=== PATIENT | female | born 1980 | race Hispanic/Latino ===

== ENCOUNTER 2018-08-30 09:29 | Outpatient (CLI) | payer OTHER ==
--- NOTE | 2018-08-30 12:07 | ULT ---
OB ULTRASOUND: INDICATION: Evaluation for size and dates. FINDINGS: There is a single live intrauterine gestation which by ultrasound imaging corresponds to a 21-week 5- day gestation placing estimated date of delivery by ultrasound at 01/05/2019. Estimated weight is 476 gm. The imaged anatomy including the cranium, spine, 4-chamber, gastric bubble, k idneys, cord insertion site, and urinary bladder reveal no significant abnormalities. The fetus is i n a breech lie, as demonstrated. Placenta is located primarily in an anterior location. Cardiac act ivity is documented at 141 b.p.m. Biparietal diameter corresponds to 21 weeks 4 days. Head circumference 21 weeks 3 days. Abdominal circumference 22 weeks 2 days Femur length 22 weeks 1 day. NESTOR is measured at 14.5 cm. IMPRESSION: Single live intrauterine gestation as discussed above. POS: [facility]
== END 2018-08-30 09:30 | disposition home or self-care (01) ==
LOC: SCSULT 09:29
PROVIDERS: ATTEND Nurse Practitioner
DX: O09.92 Supervision of high risk pregnancy, unspecified, second trimester (principal); Z3A.21 21 weeks gestation of pregnancy
CPT/HCPCS: 76805

== ENCOUNTER 2019-01-03 05:07 | Inpatient (IN) | payer MEDICAID, SELFPAY ==
[2019-01-03] MEDS ORDERED: Ondansetron PF 4 MG/2 ML Vial IVP PRN ×3 (05:44→09:10)
[2019-01-03] MEDS ORDERED: Lactated Ringer's 1,000 ML IV SCH ×2 (05:44→09:10)
[2019-01-03] MEDS ORDERED: Bicitra 30 ML UDCUP PO SCH (05:45)
[2019-01-03 05:51] VITALS: BMI 37.8
[2019-01-03] MEDS ORDERED: CEFAZOLIN 2 GM/50 ML BAG IVPB SCH (06:00)
[2019-01-03 06:05] LABS: Hemoglobin 13.2 g/dL (12.0-16.0); Mean Corpuscular HGB CONC 33.5 g/dL (32.0-36.0); Mean Corpuscular Hemoglobin 28.6 pg (27.0-31.0); Mean Corpuscular Volume 85.4 fL (78.0-98.0); Mean Platelet Volume 8.9 fL (7.4-10.4); Platelet Count 221 thou/uL (130-400); RBC Distribution Width 12.8 % (11.5-14.5); Red Blood Cell (RBC) Count 4.62 mill/uL (4.20-5.40); White Blood Cell (WBC) Count 10.2 thou/uL (4.8-10.8)
[2019-01-03 06:40] LABS: HBSAg Index 0.22 S/CO (0-0.99); Hep B Surf Ag Non-Reactive S/CO (NonReactive); Syphilis Antibody Nonreactive (Nonreactive); Syphilis Antibody Index 0.09 S/CO (<1.00 Non-Reactive)
[2019-01-03] MEDS ORDERED: MORPHINE 5 MG/10 ML PF VIAL ONE (07:05)
[2019-01-03] MEDS ORDERED: Fentanyl 100 MCG/2 ML VIAL ONE (07:05)
[2019-01-03] MEDS ORDERED: Ondansetron PF 4 MG/2 ML Vial ONE ×2 (07:06→16:59)
[2019-01-03] MEDS ORDERED: ePHEDrine/0.9% NaCl/PF SYRINGE 50 mg/10 ml ONE (07:06)
[2019-01-03] MEDS ORDERED: Oxytocin 10 UNITS/ML VIAL ONE ×2 (07:06→08:38)
[2019-01-03] MEDS ORDERED: Ketorolac Tromethamine 30 MG/ML VIAL ONE ×2 (07:06→16:59)
[2019-01-03] MEDS ORDERED: Atropine Sulfate 0.4 mg/1 ml Vial ONE ×2 (07:37→16:59)
[2019-01-03] MEDS ORDERED: Methylergonovine 0.2 MG/ML VIAL ONE (07:46)
[2019-01-03] MEDS ORDERED: Promethazine HCl 25 MG SUPP PR PRN (07:47)
[2019-01-03] MEDS ORDERED: Promethazine HCl 25 MG/ML VIAL IM PRN (07:47)
[2019-01-03] MEDS ORDERED: Naloxone HCl 0.4 mg/ml Vial IVP PRN ×2 (07:47)
[2019-01-03] MEDS ORDERED: Ondansetron HCl/PF 4 MG/2 ML Vial IVP PRN (07:47)
[2019-01-03] MEDS ORDERED: HYDROmorphone 2 MG/ML VIAL SLOW IVP PRN (07:47)
[2019-01-03] MEDS ORDERED: diphenhydrAMINE 50 MG/ML VIAL IVP PRN (07:47)
[2019-01-03] MEDS ORDERED: Meperidine HCl/PF 25 MG/ML VIAL SLOW IVP PRN (07:47)
[2019-01-03] MEDS ORDERED: L&D-Morphine 4 MG/ML VIAL SLOW IVP PRN (07:47)
[2019-01-03] MEDS ORDERED: Naloxone HCl 0.4 mg/ml Vial IV PRN (07:47)
[2019-01-03] MEDS ORDERED: Eucerin (Mineral Oil/Petrolatum,White) 30 gm Jar TOP PRN (07:47)
[2019-01-03] MEDS ORDERED: Ketorolac Tromethamine 30 MG/ML VIAL IVP SCH (08:00)
[2019-01-03] MEDS ORDERED: Communication Order-Pharmacy FS SCH (08:00)
[2019-01-03] MEDS ORDERED: Bisacodyl 10 MG SUPP PR PRN (09:10)
[2019-01-03] MEDS ORDERED: NS / Oxytocin 40 units/1000ml 1,000 ML IV SCH (09:10)
[2019-01-03] MEDS ORDERED: diphenhydrAMINE 25 MG CAP PO PRN (09:10)
[2019-01-03] MEDS ORDERED: Lanolin Ointment 7 GM TUBE TOP PRN (09:10)
[2019-01-03] MEDS ORDERED: Prenatal Vitamin 1 TAB PO SCH (09:45)
[2019-01-03] MEDS ORDERED: Docusate Calcium (SURFAK) 240 MG CAP PO SCH (09:45)
[2019-01-03] MEDS ORDERED: Ferrous Sulfate 325 MG TAB PO SCH (09:45)
[2019-01-03] MEDS: Ketorolac Tromethamine 30 MG/ML VIAL IVP PRN (14:19)
[2019-01-03] MEDS: Ferrous Sulfate 325 MG TAB PO SCH (16:04)
[2019-01-03] MEDS ORDERED: ePHEDrine 50 MG/ML VIAL ONE (16:59)
[2019-01-03] MEDS ORDERED: HYDROcodone/Acetaminophen 5/325 mg Tablet PO PRN ×2 (20:00)
[2019-01-03] MEDS ORDERED: Meperidine HCl/PF 25 MG/ML VIAL IM PRN (20:00)
[2019-01-03] MEDS: Docusate Calcium (SURFAK) 240 MG CAP PO SCH (22:13)
[2019-01-03] MEDS: Simethicone Chewable 80 MG TAB PO PRN (22:13)
[2019-01-04] MEDS: Ketorolac Tromethamine 30 MG/ML VIAL IVP PRN (00:48)
[2019-01-04 08:54] LABS: Hemoglobin 9.8 g/dL (12.0-16.0); Mean Corpuscular HGB CONC 33.5 g/dL (32.0-36.0); Mean Corpuscular Hemoglobin 29.1 pg (27.0-31.0); Mean Corpuscular Volume 86.9 fL (78.0-98.0); Mean Platelet Volume 7.9 fL (7.4-10.4); Platelet Count 178 thou/uL (130-400); Red Blood Cell (RBC) Count 3.38 mill/uL (4.20-5.40); White Blood Cell (WBC) Count 10.2 thou/uL (4.8-10.8)
[2019-01-04] MEDS: Docusate Calcium (SURFAK) 240 MG CAP PO SCH ×2 (09:03→21:45)
[2019-01-04] MEDS: Prenatal Vitamin 1 TAB PO SCH (09:03)
[2019-01-04] MEDS: Ferrous Sulfate 325 MG TAB PO SCH ×3 (09:04→20:29)
[2019-01-04] MEDS: Ibuprofen 800 MG TAB PO SCH ×2 (10:19→21:45)
[2019-01-05] MEDS: Simethicone Chewable 80 MG TAB PO PRN (06:16)
[2019-01-05] MEDS: Ibuprofen 800 MG TAB PO SCH (06:16)
[2019-01-05] MEDS: Prenatal Vitamin 1 TAB PO SCH (08:47)
[2019-01-05] MEDS: Docusate Calcium (SURFAK) 240 MG CAP PO SCH (08:48)
[2019-01-05] MEDS: Ferrous Sulfate 325 MG TAB PO SCH (08:48)
[2019-01-05 08:52] VITALS: BP 116/64; TEMP 98.5
== END 2019-01-05 13:35 | disposition home or self-care (01) | DRG 788 ==
LOC: L&D 05:07 → 3SW 10:49
PROVIDERS: ADMIT Family Medicine; ATTEND Family Medicine
PROC: 10D00Z1 Extraction of Products of Conception, Low, Open Approach (ICD-10-PCS; principal; 2019-01-03)
DX: O34.211 Maternal care for low transverse scar from previous cesarean delivery (principal); O69.81X0 Labor and delivery complicated by cord around neck, without compression, not applicable or unspecified; Z3A.39 39 weeks gestation of pregnancy; Z37.0 Single live birth
CPT/HCPCS: 36415; 51702; 85027; 86780; 86850; 86900; 86901; 87340; J0461; J1885; J2210; J2270; J2405; J2590; J3010; J3490